=== PATIENT | female | born 1975 | race Caucasian/White ===

== ENCOUNTER 2022-09-24 20:01 | Emergency (ER) | payer MEDICAID | END 2022-09-24 21:54 | disposition home or self-care (01) | LOC: JP.ED 20:01 | DX: S93.492A Sprain of other ligament of left ankle, initial encounter (principal); X50.1XXA Overexertion from prolonged static or awkward postures, initial encounter; Y93.K1 Activity, walking an animal | CPT/HCPCS: 73610-26-LT; 73610-LT; 99283 ==